=== PATIENT | male | born 1970 | race Caucasian/White ===

== ENCOUNTER 2020-11-20 21:34 | Inpatient (IN) | payer SELFPAY ==
[2020-11-20] MEDS ORDERED: Diltiazem 125 MG/25 ML ONE (21:44)
[2020-11-20] MEDS ORDERED: Cefepime 2 GM VIAL ONE (22:50)
[2020-11-20 22:54] LABS: #Lymphocytes 1.5 thou/uL (1.20-3.40); #Monocytes 0.9 thou/uL (0.11-0.59); #Neutrophils 5.7 thou/uL (1.40-6.50); %Basophils 0.2 % (0.0-1.0); %Eosinophils 0.3 % (0.0-10.0); %Lymphocytes 18.7 % (21.0-51.0); %Monocytes 10.7 % (0.0-10.0); %Neutrophils 70.2 % (42.0-75.0); Hemoglobin 13.1 g/dL (14.0-18.0); Mean Corpuscular HGB CONC 32.3 g/dL (32.0-36.0); Mean Corpuscular Volume 77.4 fL (78.0-98.0); Mean Platelet Volume 8.7 fL (7.4-10.4); Platelet Count 214 thou/uL (130-400); RBC Distribution Width 15.3 % (11.5-14.5); Red Blood Cell (RBC) Count 5.25 mill/uL (4.70-6.10); White Blood Cell (WBC) Count 8.1 thou/uL (4.8-10.8)
[2020-11-20 23:04] LABS: INR-International Normal Ratio 1.3; PTT 32.2 sec (22.9-36.1); Prothrombin Time 16.6 sec (12.0-14.7)
[2020-11-20 23:22] LABS: ALT (SGPT) 517 U/L (8-55); AST (SGOT) 225 U/L (5-34); Albumin 3.7 g/dL (3.5-5.0); Alkaline Phosphatase 103 U/L (40-110); Anion Gap 16 mmol/L (10-20); BUN (Urea Nitrogen) 16 mg/dL (8.9-20.6); Bilirubin, Total 1.9 mg/dL (0.2-1.2); Calc. Creatinine Clearance 0 mL/min (70-130); Calcium 8.2 mg/dL (7.8-10.44); Carbon Dioxide 16 mmol/L (22-29); Chloride 102 mmol/L (98-107); Globulin 2.8 g/dL (2.4-3.5); Glucose 116 mg/dL (70-105); Protein, Total 6.5 g/dL (6.0-8.3); Sodium 130 mmol/L (136-145)
[2020-11-21] MEDS ORDERED: Ondansetron PF 4 MG/2 ML Vial IVP PRN (01:14)
[2020-11-21] MEDS ORDERED: Lorazepam 2 MG/ML VIAL SLOW IVP PRN (01:25)
[2020-11-21] MEDS ORDERED: Diltiazem 125 MG in Sodium Chloride 0.9% 100 ML IVPB SCH (01:30)
[2020-11-21 02:51] LABS: Hemoglobin 12.9 g/dL (14.0-18.0); Mean Corpuscular HGB CONC 32.3 g/dL (32.0-36.0); Mean Corpuscular Volume 77.4 fL (78.0-98.0); Mean Platelet Volume 8.6 fL (7.4-10.4); Platelet Count 196 thou/uL (130-400); RBC Distribution Width 15.2 % (11.5-14.5); Red Blood Cell (RBC) Count 5.15 mill/uL (4.70-6.10); White Blood Cell (WBC) Count 8.5 thou/uL (4.8-10.8)
[2020-11-21] MEDS: Benzonatate 100 MG CAP PO PRN ×2 (02:53→15:37)
[2020-11-21 03:03] LABS: Eosinophils 1 % (0-10); Lymphocytes 17 % (21-51); MDiff Complete? YES; Monocytes 6 % (0-10); Neutrophil 76 % (42-75)
[2020-11-21 03:10] LABS: Troponin I 0.025 ng/mL (< 0.028)
[2020-11-21 03:14] LABS: ALT (SGPT) 478 U/L (8-55); AST (SGOT) 202 U/L (5-34); Albumin 3.5 g/dL (3.5-5.0); Alkaline Phosphatase 98 U/L (40-110); Anion Gap 13 mmol/L (10-20); BUN (Urea Nitrogen) 16 mg/dL (8.9-20.6); Bilirubin, Direct 1.1 mg/dL (0.1-0.3); Bilirubin, Total 1.9 mg/dL (0.2-1.2); Calc. Creatinine Clearance 112 mL/min (70-130); Calcium 8.3 mg/dL (7.8-10.44); Carbon Dioxide 18 mmol/L (22-29); Chloride 101 mmol/L (98-107); Glucose 110 mg/dL (70-105); Magnesium 1.7 mg/dL (1.6-2.6); Potassium 3.9 mmol/L (3.5-5.1); Protein, Total 6.2 g/dL (6.0-8.3); Sodium 128 mmol/L (136-145)
[2020-11-21 04:13] LABS: Bacteria/HPF None Seen HPF (None Seen); Bilirubin Negative (Negative); Blood, Urine Negative (Negative); Clarity Clear (Clear); Glucose, Urine (Dipstick) Normal (Negative); Ketone, Urine Negative (Negative); Leukocyte Negative Leu/uL (Negative); Nitrite Negative (Negative); Protein, Urine (Dipstick) Negative (Neg-Trace); RBC/HPF None Seen HPF (0-3); Specific Gravity, Urine 1.016 (1.002-1.036); Squamous Epithelial 0-3 HPF (0-3); Urobilinogen Normal mg/dL (Less than 2); WBC/HPF 0-3 HPF (0-3)
[2020-11-21 04:14] LABS: Urine Culture Reflex No No
[2020-11-21] MEDS ORDERED: Magnesium 2 GM/50 ML 2 GM in Premix Bag 1 BAG IVPB SCH ×2 (04:15→11:45)
[2020-11-21 08:06] LABS: Iron 24 ug/dL (65-175); Iron Binding Capacity, Total 326 mcg/dL (261-462); Phosphorus 2.9 mg/dL (2.3-4.7)
[2020-11-21] MEDS: Folic Acid 1 MG TAB PO SCH (09:05)
[2020-11-21] MEDS: Aspirin 81 mg Enteric Coated Tablet PO SCH (09:05)
[2020-11-21] MEDS ORDERED: Sodium Bicarbonate Tab 325 MG TAB PO SCH (09:15)
[2020-11-21] MEDS ORDERED: Heparin 1,000 UNITS/ML VIAL ONE (09:34)
[2020-11-21] MEDS ORDERED: Iopamidol 370 76% 100 ML VIAL ONE (09:57)
[2020-11-21] MEDS ORDERED: Communication Order-Pharmacy FS SCH (11:15)
[2020-11-21] MEDS ORDERED: Furosemide 40 MG/4 ML VIAL SLOW IVP SCH (11:45)
[2020-11-21] MEDS ORDERED: Digoxin 0.125 MG TAB PO SCH (11:45)
[2020-11-21] MEDS ORDERED: Potassium Chloride 20 MEQ TAB PO SCH (11:45)
[2020-11-21] MEDS ORDERED: Amiodarone 150 MG, Admixture Fee 1 EACH in Dextrose 5% in Water 100 ML IVPB SCH (11:45)
[2020-11-21 12:14] LABS: SARS-CoV-2 PCR by NAA Not Detected (NotDetected)
[2020-11-21 12:21] LABS: Anion Gap 17 mmol/L (10-20); BUN (Urea Nitrogen) 13 mg/dL (8.9-20.6); Calc. Creatinine Clearance 144 mL/min (70-130); Carbon Dioxide 16 mmol/L (22-29); Chloride 103 mmol/L (98-107); Potassium 3.8 mmol/L (3.5-5.1); Sodium 132 mmol/L (136-145)
[2020-11-21 12:22] LABS: Calcium 8.4 mg/dL (7.8-10.44); Glucose 106 mg/dL (70-105)
[2020-11-21] MEDS ORDERED: Lidocaine 1% (PF) 30 ML VIAL ONE (12:24)
[2020-11-21] MEDS ORDERED: Iron, Sodium Ferric Gluconate 250 MG in Sodium Chloride 0.9% 250 ML 250 ML IVPB SCH (12:30)
[2020-11-21] MEDS: Amiodarone 450 MG, Admixture Fee 1 EACH in Dextrose 5% in Water 250 ML IVPB SCH ×2 (12:54→21:07)
[2020-11-21] MEDS ORDERED: Midazolam HCl 2 mg/2 ml Vial ONE (13:24)
[2020-11-21] MEDS ORDERED: Nitroglycerin 0.4 MG TAB (25 Tab Bottle) SL PRN (13:41)
[2020-11-21] MEDS ORDERED: Acetaminophen/Codeine 30-300mg Tablet PO PRN ×2 (13:41)
[2020-11-21] MEDS ORDERED: Sodium Chloride 0.9% 200 ML IV PRN (13:41)
[2020-11-21 15:01] LABS: Hemoglobin 12.8 g/dL (14.0-18.0); Platelet Count 210 thou/uL (130-400)
[2020-11-21] MEDS: Sodium Bicarbonate Tab 325 MG TAB PO SCH ×2 (15:37→21:04)
[2020-11-21] MEDS: Carvedilol 3.125 MG TAB PO SCH (17:46)
[2020-11-21] MEDS: Atorvastatin Calcium 40 MG TAB PO SCH (21:04)
[2020-11-22] MEDS: Heparin 25,000 units/D5W 500 ML IVPB SCH (02:32)
[2020-11-22] MEDS: Heparin 10,000 UNITS/ 10 ML VIAL SLOW IVP SCH (02:32)
[2020-11-22 05:58] LABS: Hemoglobin 13.8 g/dL (14.0-18.0); Mean Corpuscular HGB CONC 31.2 g/dL (32.0-36.0); Mean Corpuscular Hemoglobin 24.3 pg (27.0-31.0); Mean Corpuscular Volume 78.1 fL (78.0-98.0); Mean Platelet Volume 8.7 fL (7.4-10.4); Platelet Count 197 thou/uL (130-400); RBC Distribution Width 15.8 % (11.5-14.5); Red Blood Cell (RBC) Count 5.65 mill/uL (4.70-6.10); White Blood Cell (WBC) Count 7.4 thou/uL (4.8-10.8)
[2020-11-22 06:09] LABS: INR-International Normal Ratio 1.4; Prothrombin Time 17.1 sec (12.0-14.7)
[2020-11-22 06:11] LABS: PTT 94.9 sec (22.9-36.1)
[2020-11-22 06:18] LABS: ALT (SGPT) 379 U/L (8-55); AST (SGOT) 128 U/L (5-34); Albumin 3.7 g/dL (3.5-5.0); Alkaline Phosphatase 106 U/L (40-110); Anion Gap 13 mmol/L (10-20); BUN (Urea Nitrogen) 14 mg/dL (8.9-20.6); Bilirubin, Total 1.7 mg/dL (0.2-1.2); Calc. Creatinine Clearance 107 mL/min (70-130); Calcium 8.5 mg/dL (7.8-10.44); Carbon Dioxide 20 mmol/L (22-29); Chloride 101 mmol/L (98-107); Glucose 150 mg/dL (70-105); Potassium 3.8 mmol/L (3.5-5.1); Protein, Total 6.6 g/dL (6.0-8.3); Sodium 130 mmol/L (136-145)
[2020-11-22 06:35] LABS: Band 4 % (5-11); Eosinophils 1 % (0-10); Lymphocytes 25 % (21-51); MDiff Complete? YES; Monocytes 2 % (0-10); Neutrophil 68 % (42-75)
[2020-11-22] MEDS ORDERED: Magnesium 2 GM/50 ML 2 GM in Premix Bag 1 BAG IVPB SCH (08:15)
[2020-11-22] MEDS ORDERED: Potassium Chloride 20 MEQ TAB PO SCH (08:15)
[2020-11-22] MEDS ORDERED: Spironolactone 25 MG TAB PO SCH (08:45)
[2020-11-22] MEDS: Digoxin 0.125 MG TAB PO SCH (09:59)
[2020-11-22] MEDS: Spironolactone 25 MG TAB PO SCH (09:59)
[2020-11-22] MEDS: Aspirin 81 mg Enteric Coated Tablet PO SCH (09:59)
[2020-11-22] MEDS: Sodium Bicarbonate Tab 325 MG TAB PO SCH ×3 (09:59→20:32)
[2020-11-22] MEDS: Folic Acid 1 MG TAB PO SCH (09:59)
[2020-11-22] MEDS: Furosemide 40 MG/4 ML VIAL SLOW IVP SCH ×3 (09:59→20:31)
[2020-11-22] MEDS: Carvedilol 3.125 MG TAB PO SCH (10:26)
[2020-11-22] MEDS: Iron, Sodium Ferric Gluconate 250 MG in Sodium Chloride 0.9% 250 ML 250 ML IVPB SCH (11:19)
[2020-11-22] MEDS: Amiodarone 200 MG TAB PO SCH (11:19)
[2020-11-22] MEDS ORDERED: Loperamide HCl 2 MG CAP PO PRN (12:29)
[2020-11-22] MEDS ORDERED: hydrALAZINE 20 MG/ML VIAL SLOW IVP PRN (12:29)
[2020-11-22] MEDS ORDERED: Senokot S 8.6-50 MG TAB PO PRN (12:29)
[2020-11-22] MEDS ORDERED: Sodium Chloride 0.65% Nasal 44 ML BOT EA NARE PRN (12:29)
[2020-11-22] MEDS ORDERED: Bisacodyl 5 MG TAB PO PRN (12:29)
[2020-11-22] MEDS ORDERED: Loratadine 10 MG TAB PO PRN (12:29)
[2020-11-22] MEDS ORDERED: Cepastat Lozenges 1 LOZ PO PRN (12:29)
[2020-11-22] MEDS: Acetaminophen 325 MG TAB PO PRN (13:52)
[2020-11-22] MEDS: Potassium Chloride 20 MEQ TAB PO SCH (15:32)
[2020-11-22] MEDS: Atorvastatin Calcium 40 MG TAB PO SCH (20:32)
[2020-11-23] MEDS: Heparin 25,000 units/D5W 500 ML IVPB SCH (00:10)
[2020-11-23] MEDS: Amiodarone 200 MG TAB PO SCH (00:10)
[2020-11-23 05:13] LABS: Hemoglobin 12.7 g/dL (14.0-18.0); Mean Corpuscular HGB CONC 29.8 g/dL (32.0-36.0); Mean Corpuscular Hemoglobin 23.1 pg (27.0-31.0); Mean Corpuscular Volume 77.6 fL (78.0-98.0); Mean Platelet Volume 8.6 fL (7.4-10.4); Platelet Count 194 thou/uL (130-400); RBC Distribution Width 15.6 % (11.5-14.5); Red Blood Cell (RBC) Count 5.51 mill/uL (4.70-6.10); White Blood Cell (WBC) Count 10.3 thou/uL (4.8-10.8)
[2020-11-23 05:29] LABS: Anion Gap 15 mmol/L (10-20); BUN (Urea Nitrogen) 22 mg/dL (8.9-20.6); Calc. Creatinine Clearance 95 mL/min (70-130); Calcium 8.2 mg/dL (7.8-10.44); Carbon Dioxide 19 mmol/L (22-29); Chloride 97 mmol/L (98-107); Glucose 104 mg/dL (70-105); Magnesium 1.7 mg/dL (1.6-2.6); Potassium 3.9 mmol/L (3.5-5.1); Sodium 127 mmol/L (136-145)
[2020-11-23 05:31] LABS: ALT (SGPT) 1195 U/L (8-55); AST (SGOT) 1913 U/L (5-34); Albumin 3.4 g/dL (3.5-5.0); Alkaline Phosphatase 100 U/L (40-110); Bilirubin, Direct 1.5 mg/dL (0.1-0.3); Bilirubin, Total 2.3 mg/dL (0.2-1.2); Protein, Total 6.1 g/dL (6.0-8.3)
[2020-11-23 05:38] LABS: Band 1 % (5-11); Lymphocytes 18 % (21-51); MDiff Complete? YES; Monocytes 1 % (0-10); Neutrophil 78 % (42-75); Reactive Lymphocytes 2 % (0-10)
[2020-11-23] MEDS: Heparin 10,000 UNITS/ 10 ML VIAL SLOW IVP SCH ×2 (05:40→21:20)
[2020-11-23] MEDS ORDERED: Furosemide 40 MG/4 ML VIAL SLOW IVP SCH (06:00)
[2020-11-23] MEDS: Acetaminophen 325 MG TAB PO PRN (07:32)
[2020-11-23] MEDS: Iron, Sodium Ferric Gluconate 250 MG in Sodium Chloride 0.9% 250 ML 250 ML IVPB SCH (09:11)
[2020-11-23] MEDS: Sodium Bicarbonate Tab 325 MG TAB PO SCH ×3 (09:12→21:12)
[2020-11-23] MEDS: Digoxin 0.125 MG TAB PO SCH (09:15)
[2020-11-23] MEDS: Spironolactone 25 MG TAB PO SCH (09:15)
[2020-11-23] MEDS: Aspirin 81 mg Enteric Coated Tablet PO SCH (09:15)
[2020-11-23] MEDS: Potassium Chloride 20 MEQ TAB PO SCH ×2 (09:15→16:04)
[2020-11-23] MEDS: Folic Acid 1 MG TAB PO SCH (09:15)
[2020-11-23 09:49] LABS: ALT (SGPT) 1244 U/L (8-55); AST (SGOT) 2149 U/L (5-34); Albumin 3.6 g/dL (3.5-5.0); Alkaline Phosphatase 108 U/L (40-110); Anion Gap 17 mmol/L (10-20); BUN (Urea Nitrogen) 22 mg/dL (8.9-20.6); Bilirubin, Total 2.1 mg/dL (0.2-1.2); Calc. Creatinine Clearance 92 mL/min (70-130); Calcium 8.3 mg/dL (7.8-10.44); Carbon Dioxide 20 mmol/L (22-29); Chloride 95 mmol/L (98-107); Globulin 2.8 g/dL (2.4-3.5); Glucose 96 mg/dL (70-105); Magnesium 1.7 mg/dL (1.6-2.6); Protein, Total 6.4 g/dL (6.0-8.3); Sodium 128 mmol/L (136-145)
[2020-11-23 12:27] LABS: PTT 161.7 sec (22.9-36.1)
[2020-11-23 12:41] LABS: Hemoglobin 13.2 g/dL (14.0-18.0); Platelet Count 208 thou/uL (130-400)
[2020-11-23] MEDS ORDERED: Amiodarone 200 MG TAB PO SCH (13:00)
[2020-11-23] MEDS ORDERED: Magnesium 2 GM/50 ML 2 GM in Premix Bag 1 BAG IVPB SCH (14:30)
[2020-11-23] MEDS: Sotalol HCl 80 MG TAB PO SCH (21:13)
[2020-11-24 03:24] LABS: #Lymphocytes 1.3 thou/uL (1.20-3.40); #Neutrophils 7.1 thou/uL (1.40-6.50); %Basophils 0.1 % (0.0-1.0); %Eosinophils 0.1 % (0.0-10.0); %Lymphocytes 13.5 % (21.0-51.0); %Monocytes 10.9 % (0.0-10.0); %Neutrophils 75.4 % (42.0-75.0); Hemoglobin 13.5 g/dL (14.0-18.0); Mean Corpuscular Hemoglobin 24.8 pg (27.0-31.0); Mean Corpuscular Volume 77.7 fL (78.0-98.0); Mean Platelet Volume 8.4 fL (7.4-10.4); Platelet Count 210 thou/uL (130-400); RBC Distribution Width 15.6 % (11.5-14.5); Red Blood Cell (RBC) Count 5.42 mill/uL (4.70-6.10); White Blood Cell (WBC) Count 9.4 thou/uL (4.8-10.8)
[2020-11-24 03:52] LABS: ALT (SGPT) 996 U/L (8-55); AST (SGOT) 1044 U/L (5-34); Albumin 3.5 g/dL (3.5-5.0); Alkaline Phosphatase 113 U/L (40-110); Anion Gap 13 mmol/L (10-20); BUN (Urea Nitrogen) 21 mg/dL (8.9-20.6); Bilirubin, Total 1.8 mg/dL (0.2-1.2); Calc. Creatinine Clearance 106 mL/min (70-130); Calcium 8.2 mg/dL (7.8-10.44); Carbon Dioxide 23 mmol/L (22-29); Chloride 98 mmol/L (98-107); Globulin 2.9 g/dL (2.4-3.5); Glucose 119 mg/dL (70-105); Magnesium 2.1 mg/dL (1.6-2.6); Potassium 3.9 mmol/L (3.5-5.1); Protein, Total 6.4 g/dL (6.0-8.3); Sodium 130 mmol/L (136-145)
[2020-11-24 04:05] LABS: Phosphorus 1.9 mg/dL (2.3-4.7)
[2020-11-24] MEDS ORDERED: Potassium Phosphate 15 MMOL in Sodium Chloride 0.9% 250 ML 250 ML IVPB SCH (04:15)
[2020-11-24] MEDS: Heparin 25,000 units/D5W 500 ML IVPB SCH (05:22)
[2020-11-24] MEDS: Sotalol HCl 80 MG TAB PO SCH (07:35)
[2020-11-24] MEDS: Potassium Chloride 20 MEQ TAB PO SCH ×2 (07:35→15:35)
[2020-11-24] MEDS: Digoxin 0.125 MG TAB PO SCH (07:35)
[2020-11-24] MEDS: Aspirin 81 mg Enteric Coated Tablet PO SCH (07:35)
[2020-11-24] MEDS: Sodium Bicarbonate Tab 325 MG TAB PO SCH ×2 (07:35→21:37)
[2020-11-24] MEDS: Spironolactone 25 MG TAB PO SCH (07:36)
[2020-11-24] MEDS: Folic Acid 1 MG TAB PO SCH (07:36)
[2020-11-24] MEDS ORDERED: PHENYLEPHRINE-NS 100 MCG/ML 10 ML SYRINGE ONE ×2 (08:24→08:39)
[2020-11-24] MEDS ORDERED: PROPOFOL 200 MG/20 ML VIAL ONE ×2 (08:24→08:30)
[2020-11-24] MEDS ORDERED: PROPOFOL 40 ML ONE (08:30)
[2020-11-24 12:06] LABS: INR-International Normal Ratio 1.6
[2020-11-24] MEDS: Heparin 10,000 UNITS/ 10 ML VIAL SLOW IVP SCH ×2 (13:27→23:29)
[2020-11-24] MEDS: Warfarin Sodium 7.5 MG TAB PO SCH (15:36)
[2020-11-24] MEDS: Benzonatate 100 MG CAP PO PRN (16:49)
[2020-11-24] MEDS: Milrinone Lactate/D5W 20 MG in Premix Bag 1 BAG IV SCH (17:28)
[2020-11-25] MEDS: Benzonatate 100 MG CAP PO PRN (01:08)
[2020-11-25] MEDS: Milrinone Lactate/D5W 20 MG in Premix Bag 1 BAG IV SCH (05:26)
[2020-11-25 05:30] LABS: INR-International Normal Ratio 1.4; Prothrombin Time 17.3 sec (12.0-14.7)
[2020-11-25 05:44] LABS: ALT (SGPT) 718 U/L (8-55); AST (SGOT) 488 U/L (5-34); Albumin 3.2 g/dL (3.5-5.0); Alkaline Phosphatase 113 U/L (40-110); Anion Gap 9 mmol/L (10-20); BUN (Urea Nitrogen) 15 mg/dL (8.9-20.6); Bilirubin, Total 1.7 mg/dL (0.2-1.2); Calc. Creatinine Clearance 135 mL/min (70-130); Calcium 8.2 mg/dL (7.8-10.44); Carbon Dioxide 25 mmol/L (22-29); Chloride 102 mmol/L (98-107); Globulin 2.8 g/dL (2.4-3.5); Glucose 143 mg/dL (70-105); Magnesium 2.1 mg/dL (1.6-2.6); Potassium 3.7 mmol/L (3.5-5.1); Sodium 132 mmol/L (136-145)
[2020-11-25] MEDS: Heparin 10,000 UNITS/ 10 ML VIAL SLOW IVP SCH (05:49)
[2020-11-25] MEDS: Digoxin 0.125 MG TAB PO SCH (08:32)
[2020-11-25] MEDS: Sodium Bicarbonate Tab 325 MG TAB PO SCH ×2 (08:33→20:29)
[2020-11-25] MEDS: Spironolactone 25 MG TAB PO SCH (08:33)
[2020-11-25] MEDS: Aspirin 81 mg Enteric Coated Tablet PO SCH (08:33)
[2020-11-25] MEDS: Potassium Chloride 20 MEQ TAB PO SCH ×2 (08:33→17:40)
[2020-11-25] MEDS: Folic Acid 1 MG TAB PO SCH (08:33)
[2020-11-25] MEDS ORDERED: Furosemide 40 MG/4 ML VIAL SLOW IVP SCH ×2 (09:00)
[2020-11-25] MEDS ORDERED: Potassium Chloride 20 MEQ TAB PO SCH (09:15)
[2020-11-25] MEDS: Cyanocobalamin (Vitamin B-12) 1,000 MCG TAB PO SCH (10:19)
[2020-11-25] MEDS: Thiamine 100 MG TAB PO SCH (10:19)
[2020-11-25 13:49] LABS: Hemoglobin 13.2 g/dL (14.0-18.0); Platelet Count 211 thou/uL (130-400)
[2020-11-25] MEDS: Warfarin Sodium 7.5 MG TAB PO SCH (17:42)
[2020-11-25 18:24] LABS: PTT 127.9 sec (22.9-36.1)
[2020-11-25] MEDS: Acetaminophen 500 MG TAB PO PRN (20:30)
[2020-11-26] MEDS: Heparin 10,000 UNITS/ 10 ML VIAL SLOW IVP SCH (01:49)
[2020-11-26] MEDS: Heparin 25,000 units/D5W 500 ML IVPB SCH (04:23)
[2020-11-26 04:57] LABS: INR-International Normal Ratio 1.3; Prothrombin Time 16.5 sec (12.0-14.7)
[2020-11-26 05:16] LABS: ALT (SGPT) 531 U/L (8-55); AST (SGOT) 257 U/L (5-34); Albumin 3.1 g/dL (3.5-5.0); Alkaline Phosphatase 125 U/L (40-110); Anion Gap 8 mmol/L (10-20); BUN (Urea Nitrogen) 11 mg/dL (8.9-20.6); Bilirubin, Total 1.4 mg/dL (0.2-1.2); Calc. Creatinine Clearance 147 mL/min (70-130); Calcium 8.3 mg/dL (7.8-10.44); Carbon Dioxide 27 mmol/L (22-29); Chloride 105 mmol/L (98-107); Globulin 2.7 g/dL (2.4-3.5); Glucose 167 mg/dL (70-105); Magnesium 1.9 mg/dL (1.6-2.6); Protein, Total 5.8 g/dL (6.0-8.3); Sodium 136 mmol/L (136-145)
[2020-11-26] MEDS: Milrinone Lactate/D5W 20 MG in Premix Bag 1 BAG IV SCH (06:33)
[2020-11-26] MEDS: Potassium Chloride 20 MEQ TAB PO SCH (08:40)
[2020-11-26] MEDS: Folic Acid 1 MG TAB PO SCH (08:40)
[2020-11-26] MEDS: Cyanocobalamin (Vitamin B-12) 1,000 MCG TAB PO SCH (08:40)
[2020-11-26] MEDS: Thiamine 100 MG TAB PO SCH (08:40)
[2020-11-26] MEDS: Furosemide 40 MG/4 ML VIAL SLOW IVP SCH (08:40)
[2020-11-26] MEDS: Digoxin 0.125 MG TAB PO SCH (08:41)
[2020-11-26] MEDS: Aspirin 81 mg Enteric Coated Tablet PO SCH (08:41)
[2020-11-26] MEDS: Acetaminophen 500 MG TAB PO PRN (09:38)
[2020-11-26] MEDS: Apixaban 5 MG TAB PO SCH (20:11)
[2020-11-26] MEDS ORDERED: Potassium Chloride 20 MEQ TAB PO SCH (21:00)
[2020-11-27 05:22] LABS: INR-International Normal Ratio 1.3; Prothrombin Time 16.4 sec (12.0-14.7)
[2020-11-27 05:34] LABS: ALT (SGPT) 421 U/L (8-55); AST (SGOT) 145 U/L (5-34); Albumin 3.2 g/dL (3.5-5.0); Alkaline Phosphatase 141 U/L (40-110); Anion Gap 14 mmol/L (10-20); BUN (Urea Nitrogen) 12 mg/dL (8.9-20.6); Bilirubin, Total 1.2 mg/dL (0.2-1.2); Calc. Creatinine Clearance 130 mL/min (70-130); Calcium 9.1 mg/dL (7.8-10.44); Carbon Dioxide 25 mmol/L (22-29); Chloride 104 mmol/L (98-107); Glucose 138 mg/dL (70-105); Magnesium 1.7 mg/dL (1.6-2.6); Potassium 5.2 mmol/L (3.5-5.1); Protein, Total 6.2 g/dL (6.0-8.3); Sodium 138 mmol/L (136-145)
[2020-11-27] MEDS: Milrinone Lactate/D5W 20 MG in Premix Bag 1 BAG IV SCH ×2 (06:47→19:35)
[2020-11-27] MEDS: Digoxin 0.125 MG TAB PO SCH (09:43)
[2020-11-27] MEDS: Aspirin 81 mg Enteric Coated Tablet PO SCH (09:43)
[2020-11-27] MEDS: Folic Acid 1 MG TAB PO SCH (09:47)
[2020-11-27] MEDS: Cyanocobalamin (Vitamin B-12) 1,000 MCG TAB PO SCH (09:47)
[2020-11-27] MEDS: Apixaban 5 MG TAB PO SCH ×2 (09:47→21:08)
[2020-11-27] MEDS: Furosemide 40 MG/4 ML VIAL SLOW IVP SCH (09:48)
[2020-11-27] MEDS: Thiamine 100 MG TAB PO SCH (09:48)
[2020-11-27] MEDS ORDERED: Magnesium 2 GM/50 ML 2 GM in Premix Bag 1 BAG IVPB SCH (10:00)
[2020-11-27] MEDS ORDERED: Digoxin 0.125 MG TAB PO SCH (10:00)
[2020-11-27] MEDS ORDERED: Spironolactone 25 MG TAB PO SCH (10:15)
[2020-11-27 13:11] LABS: Hemoglobin 13.9 g/dL (14.0-18.0); Platelet Count 221 thou/uL (130-400)
[2020-11-27] MEDS ORDERED: Digoxin 0.5 MG/2 ML AMP SLOW IVP SCH (18:00)
[2020-11-28 04:50] LABS: INR-International Normal Ratio 1.2; Prothrombin Time 15.2 sec (12.0-14.7)
[2020-11-28 05:12] LABS: ALT (SGPT) 311 U/L (8-55); AST (SGOT) 99 U/L (5-34); Albumin 3.1 g/dL (3.5-5.0); Alkaline Phosphatase 135 U/L (40-110); Anion Gap 14 mmol/L (10-20); BUN (Urea Nitrogen) 14 mg/dL (8.9-20.6); Bilirubin, Total 1.6 mg/dL (0.2-1.2); Calc. Creatinine Clearance 140 mL/min (70-130); Calcium 8.9 mg/dL (7.8-10.44); Carbon Dioxide 23 mmol/L (22-29); Chloride 102 mmol/L (98-107); Globulin 3.2 g/dL (2.4-3.5); Glucose 102 mg/dL (70-105); Magnesium 1.9 mg/dL (1.6-2.6); Potassium 5.1 mmol/L (3.5-5.1); Protein, Total 6.3 g/dL (6.0-8.3); Sodium 134 mmol/L (136-145)
[2020-11-28] MEDS: Milrinone Lactate/D5W 20 MG in Premix Bag 1 BAG IV SCH ×2 (06:15→16:34)
[2020-11-28] MEDS ORDERED: Spironolactone 25 MG TAB PO SCH (08:00)
[2020-11-28] MEDS ORDERED: Potassium Chloride 20 MEQ TAB PO SCH (09:00)
[2020-11-28] MEDS ORDERED: Magnesium 2 GM/50 ML 2 GM in Premix Bag 1 BAG IVPB SCH (09:30)
[2020-11-28] MEDS: Thiamine 100 MG TAB PO SCH (09:55)
[2020-11-28] MEDS: Digoxin 0.25 MG TAB PO SCH (09:55)
[2020-11-28] MEDS: Aspirin 81 mg Enteric Coated Tablet PO SCH (09:56)
[2020-11-28] MEDS: Folic Acid 1 MG TAB PO SCH (09:57)
[2020-11-28] MEDS: Cyanocobalamin (Vitamin B-12) 1,000 MCG TAB PO SCH (09:57)
[2020-11-28] MEDS: Apixaban 5 MG TAB PO SCH ×2 (09:57→20:10)
[2020-11-28] MEDS: Spironolactone 25 MG TAB PO SCH (09:57)
[2020-11-28] MEDS: Furosemide 40 MG/4 ML VIAL SLOW IVP SCH (10:24)
[2020-11-28] MEDS ORDERED: Torsemide 20 MG TAB PO SCH (12:00)
[2020-11-29] MEDS: Milrinone Lactate/D5W 20 MG in Premix Bag 1 BAG IV SCH ×3 (00:03→17:43)
[2020-11-29 04:29] LABS: INR-International Normal Ratio 1.1; Prothrombin Time 14.2 sec (12.0-14.7)
[2020-11-29 04:41] LABS: ALT (SGPT) 242 U/L (8-55); AST (SGOT) 62 U/L (5-34); Albumin 3.3 g/dL (3.5-5.0); Alkaline Phosphatase 141 U/L (40-110); Anion Gap 12 mmol/L (10-20); BUN (Urea Nitrogen) 18 mg/dL (8.9-20.6); Bilirubin, Total 1.3 mg/dL (0.2-1.2); Calc. Creatinine Clearance 134 mL/min (70-130); Calcium 9.2 mg/dL (7.8-10.44); Carbon Dioxide 26 mmol/L (22-29); Chloride 103 mmol/L (98-107); Globulin 3.4 g/dL (2.4-3.5); Glucose 119 mg/dL (70-105); Magnesium 2.9 mg/dL (1.6-2.6); Protein, Total 6.7 g/dL (6.0-8.3); Sodium 137 mmol/L (136-145)
[2020-11-29] MEDS: Aspirin 81 mg Enteric Coated Tablet PO SCH (08:41)
[2020-11-29] MEDS: Folic Acid 1 MG TAB PO SCH (08:41)
[2020-11-29] MEDS: Digoxin 0.25 MG TAB PO SCH (08:41)
[2020-11-29] MEDS: Cyanocobalamin (Vitamin B-12) 1,000 MCG TAB PO SCH (08:42)
[2020-11-29] MEDS: Spironolactone 25 MG TAB PO SCH (08:42)
[2020-11-29] MEDS: Apixaban 5 MG TAB PO SCH ×2 (08:42→20:10)
[2020-11-29] MEDS: Thiamine 100 MG TAB PO SCH (08:43)
[2020-11-29] MEDS ORDERED: Torsemide 20 MG TAB PO SCH (09:00)
[2020-11-29] MEDS ORDERED: Sodium Chloride 0.9% 250 ML 250 ML IVPB SCH (10:30)
[2020-11-29] MEDS ORDERED: Potassium Chloride 20 MEQ TAB PO SCH (10:30)
[2020-11-29 14:07] LABS: Hemoglobin 14.8 g/dL (14.0-18.0); Platelet Count 230 thou/uL (130-400)
[2020-11-29] MEDS: Potassium Chloride 20 MEQ TAB PO SCH (17:45)
[2020-11-29] MEDS: Acetaminophen 500 MG TAB PO PRN (17:45)
[2020-11-30] MEDS: Milrinone Lactate/D5W 20 MG in Premix Bag 1 BAG IV SCH ×3 (01:46→18:42)
[2020-11-30 04:42] LABS: INR-International Normal Ratio 1.1; Prothrombin Time 14.2 sec (12.0-14.7)
[2020-11-30 04:52] LABS: ALT (SGPT) 185 U/L (8-55); AST (SGOT) 46 U/L (5-34); Albumin 3.5 g/dL (3.5-5.0); Alkaline Phosphatase 142 U/L (40-110); Anion Gap 16 mmol/L (10-20); BUN (Urea Nitrogen) 18 mg/dL (8.9-20.6); Bilirubin, Total 0.9 mg/dL (0.2-1.2); Calc. Creatinine Clearance 123 mL/min (70-130); Calcium 9.3 mg/dL (7.8-10.44); Carbon Dioxide 24 mmol/L (22-29); Chloride 102 mmol/L (98-107); Globulin 3.6 g/dL (2.4-3.5); Glucose 163 mg/dL (70-105); Potassium 4.2 mmol/L (3.5-5.1); Protein, Total 7.1 g/dL (6.0-8.3); Sodium 138 mmol/L (136-145)
[2020-11-30] MEDS: Digoxin 0.25 MG TAB PO SCH (09:25)
[2020-11-30] MEDS: Cyanocobalamin (Vitamin B-12) 1,000 MCG TAB PO SCH (09:25)
[2020-11-30] MEDS: Aspirin 81 mg Enteric Coated Tablet PO SCH (09:25)
[2020-11-30] MEDS: Potassium Chloride 20 MEQ TAB PO SCH ×2 (09:25→17:07)
[2020-11-30] MEDS: Thiamine 100 MG TAB PO SCH (09:26)
[2020-11-30] MEDS: Folic Acid 1 MG TAB PO SCH (09:26)
[2020-11-30] MEDS: Spironolactone 25 MG TAB PO SCH (09:26)
[2020-11-30] MEDS: Apixaban 5 MG TAB PO SCH ×2 (09:26→20:28)
[2020-11-30] MEDS ORDERED: Magnesium 2 GM/50 ML 2 GM in Premix Bag 1 BAG IVPB SCH (09:45)
[2020-11-30] MEDS: Torsemide 10 MG TAB PO SCH (10:52)
[2020-12-01] MEDS: Milrinone Lactate/D5W 20 MG in Premix Bag 1 BAG IV SCH ×3 (02:45→19:51)
[2020-12-01 05:18] LABS: INR-International Normal Ratio 1.1; Prothrombin Time 13.7 sec (12.0-14.7)
[2020-12-01 05:29] LABS: Digoxin 0.54 ng/mL (0.8-2.0)
[2020-12-01 05:36] LABS: ALT (SGPT) 134 U/L (8-55); AST (SGOT) 32 U/L (5-34); Albumin 3.5 g/dL (3.5-5.0); Alkaline Phosphatase 130 U/L (40-110); Anion Gap 14 mmol/L (10-20); BUN (Urea Nitrogen) 19 mg/dL (8.9-20.6); Bilirubin, Total 0.7 mg/dL (0.2-1.2); Calc. Creatinine Clearance 119 mL/min (70-130); Calcium 9.1 mg/dL (7.8-10.44); Carbon Dioxide 24 mmol/L (22-29); Chloride 105 mmol/L (98-107); Globulin 3.3 g/dL (2.4-3.5); Glucose 138 mg/dL (70-105); Magnesium 2.1 mg/dL (1.6-2.6); Potassium 4.3 mmol/L (3.5-5.1); Protein, Total 6.8 g/dL (6.0-8.3); Sodium 139 mmol/L (136-145)
[2020-12-01] MEDS: Aspirin 81 mg Enteric Coated Tablet PO SCH (08:34)
[2020-12-01] MEDS: Apixaban 5 MG TAB PO SCH ×2 (08:34→20:14)
[2020-12-01] MEDS: Folic Acid 1 MG TAB PO SCH (08:34)
[2020-12-01] MEDS: Thiamine 100 MG TAB PO SCH (08:34)
[2020-12-01] MEDS: Spironolactone 25 MG TAB PO SCH (08:34)
[2020-12-01] MEDS: Potassium Chloride 20 MEQ TAB PO SCH (08:34)
[2020-12-01] MEDS: Cyanocobalamin (Vitamin B-12) 1,000 MCG TAB PO SCH (08:34)
[2020-12-01] MEDS: Digoxin 0.25 MG TAB PO SCH (08:35)
[2020-12-01] MEDS: Torsemide 10 MG TAB PO SCH (08:35)
[2020-12-01] MEDS ORDERED: Sodium Chloride 0.9% 250 ML 250 ML IVPB SCH (10:00)
[2020-12-01] MEDS: Magnesium Oxide 400 MG TAB PO SCH ×2 (10:24→20:14)
[2020-12-01] MEDS ORDERED: Sodium Chloride 0.9% 250 ML IVPB SCH (11:00)
[2020-12-01 13:51] LABS: Hemoglobin 15.1 g/dL (14.0-18.0); Platelet Count 243 thou/uL (130-400)
[2020-12-01] MEDS: Acetaminophen 500 MG TAB PO PRN (15:24)
[2020-12-02] MEDS: Milrinone Lactate/D5W 20 MG in Premix Bag 1 BAG IV SCH ×4 (03:45→20:14)
[2020-12-02 05:13] LABS: INR-International Normal Ratio 1.1; Prothrombin Time 13.9 sec (12.0-14.7)
[2020-12-02 05:26] LABS: ALT (SGPT) 106 U/L (8-55); AST (SGOT) 32 U/L (5-34); Albumin 3.5 g/dL (3.5-5.0); Alkaline Phosphatase 130 U/L (40-110); Anion Gap 16 mmol/L (10-20); BUN (Urea Nitrogen) 16 mg/dL (8.9-20.6); Bilirubin, Total 0.6 mg/dL (0.2-1.2); Calc. Creatinine Clearance 119 mL/min (70-130); Calcium 9.2 mg/dL (7.8-10.44); Carbon Dioxide 22 mmol/L (22-29); Chloride 104 mmol/L (98-107); Globulin 3.6 g/dL (2.4-3.5); Glucose 155 mg/dL (70-105); Potassium 4.3 mmol/L (3.5-5.1); Protein, Total 7.1 g/dL (6.0-8.3); Sodium 138 mmol/L (136-145)
[2020-12-02] MEDS: Apixaban 5 MG TAB PO SCH ×2 (08:16→20:15)
[2020-12-02] MEDS: Magnesium Oxide 400 MG TAB PO SCH ×2 (08:16→20:15)
[2020-12-02] MEDS: Thiamine 100 MG TAB PO SCH (08:16)
[2020-12-02] MEDS: Potassium Chloride 10 MEQ TAB PO SCH (08:16)
[2020-12-02] MEDS: Folic Acid 1 MG TAB PO SCH (08:16)
[2020-12-02] MEDS: Aspirin 81 mg Enteric Coated Tablet PO SCH (08:16)
[2020-12-02] MEDS: Digoxin 0.25 MG TAB PO SCH (08:16)
[2020-12-02] MEDS: Cyanocobalamin (Vitamin B-12) 1,000 MCG TAB PO SCH (08:17)
[2020-12-02] MEDS: Spironolactone 25 MG TAB PO SCH (08:34)
[2020-12-03] MEDS: Milrinone Lactate/D5W 20 MG in Premix Bag 1 BAG IV SCH ×3 (04:00→21:16)
[2020-12-03 04:56] LABS: #Eosinphils 0.2 thou/uL (0.0-0.7); #Lymphocytes 2.1 thou/uL (1.20-3.40); #Monocytes 0.7 thou/uL (0.11-0.59); #Neutrophils 4.3 thou/uL (1.40-6.50); %Basophils 0.6 % (0.0-1.0); %Eosinophils 2.1 % (0.0-10.0); %Lymphocytes 28.6 % (21.0-51.0); %Monocytes 9.8 % (0.0-10.0); %Neutrophils 58.9 % (42.0-75.0); Hemoglobin 14.6 g/dL (14.0-18.0); Mean Corpuscular HGB CONC 31.4 g/dL (32.0-36.0); Mean Corpuscular Hemoglobin 25.2 pg (27.0-31.0); Mean Corpuscular Volume 80.1 fL (78.0-98.0); Platelet Count 250 thou/uL (130-400); RBC Distribution Width 17.6 % (11.5-14.5); White Blood Cell (WBC) Count 7.2 thou/uL (4.8-10.8)
[2020-12-03 05:22] LABS: Anion Gap 15 mmol/L (10-20); BUN (Urea Nitrogen) 18 mg/dL (8.9-20.6); Calc. Creatinine Clearance 126 mL/min (70-130); Calcium 9.1 mg/dL (7.8-10.44); Carbon Dioxide 22 mmol/L (22-29); Chloride 104 mmol/L (98-107); Glucose 148 mg/dL (70-105); Magnesium 1.8 mg/dL (1.6-2.6); Potassium 4.3 mmol/L (3.5-5.1); Sodium 137 mmol/L (136-145)
[2020-12-03] MEDS: Magnesium Oxide 400 MG TAB PO SCH ×2 (08:30→19:58)
[2020-12-03] MEDS: Digoxin 0.25 MG TAB PO SCH (08:30)
[2020-12-03] MEDS: Potassium Chloride 10 MEQ TAB PO SCH (08:30)
[2020-12-03] MEDS: Folic Acid 1 MG TAB PO SCH (08:31)
[2020-12-03] MEDS: Spironolactone 25 MG TAB PO SCH (08:31)
[2020-12-03] MEDS: Cyanocobalamin (Vitamin B-12) 1,000 MCG TAB PO SCH (08:31)
[2020-12-03] MEDS: Thiamine 100 MG TAB PO SCH (08:31)
[2020-12-03] MEDS: Apixaban 5 MG TAB PO SCH ×2 (08:31→19:58)
[2020-12-03] MEDS: Aspirin 81 mg Enteric Coated Tablet PO SCH (08:31)
[2020-12-03] MEDS ORDERED: Magnesium 2 GM/50 ML 2 GM in Premix Bag 1 BAG IVPB SCH (10:30)
[2020-12-03] MEDS ORDERED: Torsemide 20 MG TAB PO SCH (10:30)
[2020-12-03 11:08] VITALS: BMI 30.5
[2020-12-03] MEDS: Acetaminophen 500 MG TAB PO PRN (19:57)
[2020-12-04 04:57] LABS: #Eosinphils 0.1 thou/uL (0.0-0.7); #Lymphocytes 1.9 thou/uL (1.20-3.40); #Monocytes 0.8 thou/uL (0.11-0.59); %Basophils 0.6 % (0.0-1.0); %Eosinophils 1.8 % (0.0-10.0); %Lymphocytes 27.1 % (21.0-51.0); %Monocytes 11.4 % (0.0-10.0); %Neutrophils 59.1 % (42.0-75.0); Hemoglobin 15.5 g/dL (14.0-18.0); Mean Corpuscular HGB CONC 31.3 g/dL (32.0-36.0); Mean Corpuscular Hemoglobin 25.3 pg (27.0-31.0); Mean Corpuscular Volume 80.7 fL (78.0-98.0); Mean Platelet Volume 8.2 fL (7.4-10.4); Platelet Count 271 thou/uL (130-400); RBC Distribution Width 17.8 % (11.5-14.5); Red Blood Cell (RBC) Count 6.13 mill/uL (4.70-6.10); White Blood Cell (WBC) Count 6.8 thou/uL (4.8-10.8)
[2020-12-04 05:17] LABS: Anion Gap 16 mmol/L (10-20); BUN (Urea Nitrogen) 25 mg/dL (8.9-20.6); Calc. Creatinine Clearance 110 mL/min (70-130); Calcium 9.6 mg/dL (7.8-10.44); Carbon Dioxide 26 mmol/L (22-29); Chloride 102 mmol/L (98-107); Glucose 103 mg/dL (70-105); Magnesium 2.1 mg/dL (1.6-2.6); Sodium 140 mmol/L (136-145)
[2020-12-04] MEDS: Milrinone Lactate/D5W 20 MG in Premix Bag 1 BAG IV SCH ×3 (05:17→23:21)
[2020-12-04] MEDS ORDERED: Sodium Chloride 0.9% 250 ML IV SCH (08:30)
[2020-12-04] MEDS: Cyanocobalamin (Vitamin B-12) 1,000 MCG TAB PO SCH (08:41)
[2020-12-04] MEDS: Potassium Chloride 10 MEQ TAB PO SCH ×3 (08:41→21:27)
[2020-12-04] MEDS: Aspirin 81 mg Enteric Coated Tablet PO SCH (08:41)
[2020-12-04] MEDS: Folic Acid 1 MG TAB PO SCH (08:41)
[2020-12-04] MEDS: Magnesium Oxide 400 MG TAB PO SCH ×2 (08:41→21:27)
[2020-12-04] MEDS: Thiamine 100 MG TAB PO SCH (08:41)
[2020-12-04] MEDS: Apixaban 5 MG TAB PO SCH ×2 (08:41→21:28)
[2020-12-04] MEDS: Digoxin 0.25 MG TAB PO SCH (08:41)
[2020-12-04] MEDS: Spironolactone 25 MG TAB PO SCH (08:42)
[2020-12-04] MEDS: Torsemide 10 MG TAB PO SCH (08:42)
[2020-12-04] MEDS ORDERED: Sodium Chloride 0.9% 500 ML IV SCH (09:00)
[2020-12-04] MEDS: Acetaminophen 500 MG TAB PO PRN (14:38)
[2020-12-05 04:50] LABS: #Basophils 0.1 thou/uL (0.0-0.2); #Eosinphils 0.1 thou/uL (0.0-0.7); #Lymphocytes 1.9 thou/uL (1.20-3.40); #Monocytes 0.6 thou/uL (0.11-0.59); #Neutrophils 4.1 thou/uL (1.40-6.50); %Eosinophils 1.7 % (0.0-10.0); %Lymphocytes 28.1 % (21.0-51.0); %Monocytes 8.3 % (0.0-10.0); %Neutrophils 60.8 % (42.0-75.0); Hemoglobin 15.7 g/dL (14.0-18.0); Mean Corpuscular HGB CONC 31.9 g/dL (32.0-36.0); Mean Corpuscular Hemoglobin 25.8 pg (27.0-31.0); Mean Corpuscular Volume 80.9 fL (78.0-98.0); Mean Platelet Volume 8.3 fL (7.4-10.4); Platelet Count 273 thou/uL (130-400); RBC Distribution Width 17.7 % (11.5-14.5); White Blood Cell (WBC) Count 6.7 thou/uL (4.8-10.8)
[2020-12-05 05:18] LABS: Anion Gap 17 mmol/L (10-20); BUN (Urea Nitrogen) 22 mg/dL (8.9-20.6); Calc. Creatinine Clearance 116 mL/min (70-130); Calcium 9.5 mg/dL (7.8-10.44); Carbon Dioxide 23 mmol/L (22-29); Chloride 104 mmol/L (98-107); Glucose 141 mg/dL (70-105); Sodium 140 mmol/L (136-145)
[2020-12-05] MEDS: Spironolactone 25 MG TAB PO SCH (09:25)
[2020-12-05] MEDS: Thiamine 100 MG TAB PO SCH (09:26)
[2020-12-05] MEDS: Potassium Chloride 10 MEQ TAB PO SCH ×2 (09:26→21:23)
[2020-12-05] MEDS: Torsemide 10 MG TAB PO SCH (09:26)
[2020-12-05] MEDS: Magnesium Oxide 400 MG TAB PO SCH ×2 (09:27→21:23)
[2020-12-05] MEDS: Aspirin 81 mg Enteric Coated Tablet PO SCH (09:27)
[2020-12-05] MEDS: Folic Acid 1 MG TAB PO SCH (09:27)
[2020-12-05] MEDS: Digoxin 0.25 MG TAB PO SCH (09:27)
[2020-12-05] MEDS: Apixaban 5 MG TAB PO SCH ×2 (09:27→21:23)
[2020-12-05] MEDS: Cyanocobalamin (Vitamin B-12) 1,000 MCG TAB PO SCH (09:27)
[2020-12-05] MEDS: Milrinone Lactate/D5W 20 MG in Premix Bag 1 BAG IV SCH ×2 (09:29→18:55)
[2020-12-05 19:47] LABS: SARS-CoV-2 PCR by NAA Not Detected (NotDetected)
[2020-12-05] MEDS: Acetaminophen 500 MG TAB PO PRN (21:23)
[2020-12-06] MEDS: Milrinone Lactate/D5W 20 MG in Premix Bag 1 BAG IV SCH (04:30)
[2020-12-06 04:51] LABS: #Basophils 0.1 thou/uL (0.0-0.2); #Eosinphils 0.1 thou/uL (0.0-0.7); #Lymphocytes 2.2 thou/uL (1.20-3.40); #Monocytes 0.6 thou/uL (0.11-0.59); #Neutrophils 4.3 thou/uL (1.40-6.50); %Basophils 0.8 % (0.0-1.0); %Eosinophils 1.7 % (0.0-10.0); %Lymphocytes 30.5 % (21.0-51.0); %Monocytes 8.6 % (0.0-10.0); %Neutrophils 58.3 % (42.0-75.0); Hemoglobin 15.7 g/dL (14.0-18.0); Mean Corpuscular HGB CONC 31.1 g/dL (32.0-36.0); Mean Corpuscular Hemoglobin 24.9 pg (27.0-31.0); Mean Corpuscular Volume 80.2 fL (78.0-98.0); Mean Platelet Volume 7.9 fL (7.4-10.4); Platelet Count 278 thou/uL (130-400); RBC Distribution Width 17.4 % (11.5-14.5); Red Blood Cell (RBC) Count 6.28 mill/uL (4.70-6.10); White Blood Cell (WBC) Count 7.3 thou/uL (4.8-10.8)
[2020-12-06 05:08] LABS: Anion Gap 15 mmol/L (10-20); BUN (Urea Nitrogen) 21 mg/dL (8.9-20.6); Calc. Creatinine Clearance 146 mL/min (70-130); Calcium 9.4 mg/dL (7.8-10.44); Carbon Dioxide 20 mmol/L (22-29); Chloride 106 mmol/L (98-107); Glucose 109 mg/dL (70-105); Magnesium 1.9 mg/dL (1.6-2.6); Potassium 4.4 mmol/L (3.5-5.1); Sodium 137 mmol/L (136-145)
[2020-12-06 07:37] VITALS: BP 114/76; TEMP 97.8
[2020-12-06] MEDS: Apixaban 5 MG TAB PO SCH (08:12)
[2020-12-06] MEDS: Digoxin 0.25 MG TAB PO SCH (08:13)
[2020-12-06] MEDS: Spironolactone 25 MG TAB PO SCH (08:13)
[2020-12-06] MEDS: Potassium Chloride 10 MEQ TAB PO SCH (08:13)
[2020-12-06] MEDS: Cyanocobalamin (Vitamin B-12) 1,000 MCG TAB PO SCH (08:13)
[2020-12-06] MEDS: Thiamine 100 MG TAB PO SCH (08:13)
[2020-12-06] MEDS: Folic Acid 1 MG TAB PO SCH (08:13)
[2020-12-06] MEDS: Aspirin 81 mg Enteric Coated Tablet PO SCH (08:13)
[2020-12-06] MEDS: Torsemide 10 MG TAB PO SCH (08:13)
[2020-12-06] MEDS: Magnesium Oxide 400 MG TAB PO SCH (08:13)
== END 2020-12-06 08:47 | disposition short-term general hospital (02) | DRG 286 ==
LOC: ERS 21:34 → 2NO 11-21 00:14
PROVIDERS: ADMIT Internal Medicine; ATTEND Internal Medicine
PROC: 4A023N7 Measurement of Cardiac Sampling and Pressure, Left Heart, Percutaneous Approach (ICD-10-PCS; 2020-11-21)
PROC: B2111ZZ Fluoroscopy of Multiple Coronary Arteries using Low Osmolar Contrast (ICD-10-PCS; 2020-11-21)
PROC: B246ZZ4 Ultrasonography of Right and Left Heart, Transesophageal (ICD-10-PCS; principal; 2020-11-24)
PROC: 02HV33Z Insertion of Infusion Device into Superior Vena Cava, Percutaneous Approach (ICD-10-PCS; 2020-11-25)
PROC: B548ZZA Ultrasonography of Superior Vena Cava, Guidance (ICD-10-PCS; 2020-11-25)
DX: I13.0 Hypertensive heart and chronic kidney disease with heart failure and stage 1 through stage 4 chronic kidney disease, or unspecified chronic kidney disease (principal); I50.23 Acute on chronic systolic (congestive) heart failure; R57.0 Cardiogenic shock; K72.00 Acute and subacute hepatic failure without coma; K51.90 Ulcerative colitis, unspecified, without complications; E87.2 Acidosis; E22.2 Syndrome of inappropriate secretion of antidiuretic hormone; N17.9 Acute kidney failure, unspecified; I47.2 Ventricular tachycardia; I42.0 Dilated cardiomyopathy; F10.10 Alcohol abuse, uncomplicated; I25.10 Atherosclerotic heart disease of native coronary artery without angina pectoris; I48.0 Paroxysmal atrial fibrillation; D50.9 Iron deficiency anemia, unspecified; R74.8 Abnormal levels of other serum enzymes; I51.3 Intracardiac thrombosis, not elsewhere classified; K76.89 Other specified diseases of liver; E87.5 Hyperkalemia; N18.9 Chronic kidney disease, unspecified; Z87.891 Personal history of nicotine dependence; Z79.899 Other long term (current) drug therapy
CPT/HCPCS: 36415; 36569; 71045; 76705; 80048; 80053; 80076; 80162; 81001; 82728; 83540; 83550; 83735; 83880; 83930; 83935; 84100; 84300; 84443; 84484; 85007; 85014; 85018; 85025; 85027; 85049; 85379; 85610; 85730; 87045; 87046; 87081; 87324; 87427; 87449; 92960; 93005; 93010; 93306; 93312; 93454; 93798; 96365; 96366; 96375; 99152; C1751; J0282; J0692; J1160; J1644; J1940; J2001; J2250; J2260; J2704; J2916; J3411; J3475; J7030; J7050; J7070; Q9967; U0003; U0005